=== PATIENT | male | born 1950 | race Caucasian/White ===

== ENCOUNTER 2022-01-14 13:18 | Emergency (ER) | payer MEDICARE ==
[~2022-01-14 13:18] MED LIST: ANTIVERT25 MG PO; ASPIRIN EC81 MG PO; BACLOFEN 10MG T10 MG PO; COMBIVENT RESPIM4 GM INH; FLOMAX0.4 MG PO; FLONASE ALLER15.8 ML; HUMALOG; HUMULIN R100 UNIT/1 SC; HYDROCODONE-APA1 TAB PO; KLOR-CON M20 T20 MEQ PO; LASIX40 MG PO; LEVAQUIN500 MG PO; LEVEMIR FL100 UNIT/1 SC; LIPITOR 10MG TA10 MG PO; METFORMIN HCL500 MG PO; NAPRELAN500 MG PO; NEURONTIN100 M1 PO; NEURONTIN400 MG PO; NEXIUM 40MG CAP40 MG PO; NEXIUM20 MG PO; NORCO 5-325 TA1 EAC1 PO; NORCO 5-325 TA1 EACH PO; NOVOLOG DO100 UNIT/M SC; PLAVIX75 MG PO; PRINIVIL10 MG PO; PRINIVIL20 MG PO; PROSCAR5 MG PO; ROBAXIN500 MG PO; TEGRETOL200 MG PO; TOPROL XL 50 MG50 MG PO; TRICOR145 MG PO; VENTOLIN HFA IN18 GM INH
[2022-01-14 13:44] LABS: BASOPHIL 0.4 % (0-2); EOSINOPHIL 0.3 % (0-7); HCT 34.4 % (42.0-52.0); HGB 11.3 g/dl (13.2-18.0); LYMPHOCYTE 13.5 % (15-48); MCH 33.2 pg (25.0-31.0); MCHC 32.8 g/dL (32.0-36.0); MCV 101.2 fL (78.0-100.0); MONOCYTE 13.8 % (0-12); MPV 10.4 fL (6.0-9.5); NEUTROPHIL 71.3 % (41-80); NRBC 0; PLT 242 K/uL (150-400); RDW 14.4 % (11.5-14.0); WBC 9.2 K/uL (4.0-10.5)
[2022-01-14 14:12] LABS: ALBUMIN 3.1 g/dL (3.4-5.0); BILIRUBIN - TOTAL 0.2 mg/dL (0.2-1.0); CREATININE 1.2 mg/dL (0.67-1.17); GLOBULIN (CALCULATION) 3.7 g/dL; POTASSIUM 4.3 mmol/L (3.5-5.1); TOTAL PROTEIN 6.8 g/dL (6.4-8.2)
[2022-01-14 14:14] LABS: LACTIC ACID 4.3 mmol/L (0.4-1.9)
[2022-01-14 15:50] LABS: BILIRUBIN NEGATIVE (NEGATIVE); BLOOD TRACE-INTACT Ery/uL (NEGATIVE); CLARITY CLEAR (CLEAR); COLOR YELLOW (YELLOW); GLUCOSE (U) 1+ mg/dL (NORMAL); LEUKOCYTES NEGATIVE Leu/uL (NEGATIVE); NITRITE NEGATIVE (NEGATIVE); PROTEIN 1+ mg/dL (NEGATIVE); SPECIFIC GRAVITY 1.015 (1.001-1.030); UROBILINOGEN 0.2 mg/dL (0.2-1.0)
[2022-01-14 15:59] LABS: URINARY WBC RARE
== END 2022-01-14 18:05 | disposition home or self-care (01) ==
LOC: FER 13:18
PROVIDERS: Emergency Medicine
DX: E11.65 Type 2 diabetes mellitus with hyperglycemia (principal); R00.0 Tachycardia, unspecified; S80.212A Abrasion, left knee, initial encounter; S90.512A Abrasion, left ankle, initial encounter; E11.40 Type 2 diabetes mellitus with diabetic neuropathy, unspecified; I10 Essential (primary) hypertension; F17.200 Nicotine dependence, unspecified, uncomplicated; Z79.4 Long term (current) use of insulin; W19.XXXA Unspecified fall, initial encounter; Y92.009 Unspecified place in unspecified non-institutional (private) residence as the place of occurrence of the external cause
CPT/HCPCS: 36415; 70450; 71045; 73560; 80053; 81001; 83605; 84145; 85025; 87040; 93005; J2543; J7030

== ENCOUNTER 2022-03-09 22:36 | Emergency (ER) | payer MEDICARE ==
[2022-03-09] MEDS ORDERED: CLINDAMYCIN 15150 MG PO (23:21)
== END 2022-03-09 23:43 | disposition home or self-care (01) ==
LOC: FER 22:36
DX: T23.232A Burn of second degree of multiple left fingers (nail), not including thumb, initial encounter (principal); F17.210 Nicotine dependence, cigarettes, uncomplicated; I10 Essential (primary) hypertension; E11.9 Type 2 diabetes mellitus without complications; J44.9 Chronic obstructive pulmonary disease, unspecified; Z79.4 Long term (current) use of insulin; Z23 Encounter for immunization; Z79.82 Long term (current) use of aspirin; Z79.02 Long term (current) use of antithrombotics/antiplatelets; X08.8XXA Exposure to other specified smoke, fire and flames, initial encounter; Y92.009 Unspecified place in unspecified non-institutional (private) residence as the place of occurrence of the external cause
CPT/HCPCS: 90471; 90715